=== PATIENT | male | born 1960 | race Caucasian/White ===

== ENCOUNTER 2017-03-31 09:10 | Emergency (ER) | payer OTHER ==
[~2017-03-31] VITALS: Ht 165.1 cm; Wt 75.0 kg
[2017-03-31] MEDS ORDERED: AMLO-511 PO (09:22)
[2017-03-31] MEDS ORDERED: BUSP5TAB20 PO (09:22)
[2017-03-31] MEDS ORDERED: ASPI81 PO (09:22)
[2017-03-31] MEDS ORDERED: NAPR250T4 PO (09:22)
[2017-03-31] MEDS ORDERED: CETI-290 PO (09:22)
[2017-03-31 10:30] VITALS: BP 129/88
== END 2017-03-31 10:48 | disposition home or self-care (01) ==
LOC: EMS 09:12
DX: J40 Bronchitis, not specified as acute or chronic (principal); E78.00 Pure hypercholesterolemia, unspecified; F17.210 Nicotine dependence, cigarettes, uncomplicated; F41.9 Anxiety disorder, unspecified; I10 Essential (primary) hypertension; Z79.82 Long term (current) use of aspirin; Z88.0 Allergy status to penicillin; Z79.899 Other long term (current) drug therapy
CPT/HCPCS: 99283; 99406